=== PATIENT | female | born 1945 | race Caucasian/White ===

== ENCOUNTER 2017-01-26 10:24 | Inpatient (IN) | payer MEDICARE ==
[~2017-01-26] VITALS: Ht 160 cm; Wt 65.5 kg
[~2017-01-26 10:24] MED LIST: ASPI-973 PO; CHOL10008 PO; CYCL10TA9 PO; DXM4T PO; HYDR25TA4 PO; IBUP400T22 PO; LENA25CA PO; LORA0.5T PO; METO50TA3 PO; MV-M1TAB38 PO; NIFE60TA62 PO; OXYC-466 PO; OXYC40TA46 PO; RANI75TA21 PO; VENL75TA87 PO; ZOLP5TAB6 PO
--- NOTE | 2017-01-26 10:31 | ED.REPORT ---
HPI-Stroke / CVA Jan 26, 2017 ED Provider: Babar Bowser Patient is a 71 year old female who presents to the ED complaining of slurred speech noticed at 0900 this morning when on the phone with her daughter. She felt normal upon waking at 0500 this morning but had not spoken until her phone call with her daughter. Associated symptoms include confusion. She denies numbness, fever, vomiting, diarrhea, or any other symptoms. Patient reports that she has been feeling globally weak for the last few days. Nursing Notes Stated Complaint: STROKE SYMPTOMS Chief Complaint: Stroke Symptoms Nursing Notes Reviewed: Yes Allergies: Coded Allergies: allopurinol (Verified Allergy, Unknown, 06/12/16) Sulfa (Sulfonamide Antibiotics) (Verified Adverse Reaction, Intermediate, Nausea, 08/13/16) Scheduled Aspirin (Aspirin) 81 Mg Tablet 81 MG PO DAILY (Reported) Dexamethasone (Dexamethasone) 4 Mg Tablet 40 MG PO WEEKLY (Reported) Hydrochlorothiazide (Hydrochlorothiazide) 25 Mg Tablet 25 MG PO DAILY (Reported ) Lenalidomide (Revlimid) 25 Mg Capsule 25 MG PO daily [id number] (Reported) Metoprolol Tartrate (Metoprolol Tartrate) 50 Mg Tablet 50 MG PO BID (Reported) Nifedipine ER (Nifedipine ER) 60 Mg Tab.er.24 60 MG PO DAILY (Reported) Oxycodone ER (Oxycontin) 40 Mg Tab.er.12h 40 MG PO BID (Reported) Ranitidine (Zantac OTC) 75 Mg Tablet 75 MG PO prn (Reported) Venlafaxine ER (Venlafaxine ER) 75 Mg Tab.er.24 150 MG PO DAILY (Reported) Scheduled PRN Ibuprofen (Ibuprofen) 400 Mg Tablet 400 MG PO QID PRN PRN For Pain (Reported) Zolpidem (Zolpidem) 5 Mg Tablet 5 MG PO HS PRN PRN For Insomnia (Reported) oxyCODONE-Acetaminophen 10-325 mg (oxyCODONE-Acetaminophen 10-325 mg) 1 Each Tablet 1 TABLET PO Q6H PRN PRN For Pain (Reported) General Time Seen by Provider: 10:31 Chief Complaint Slurred speech Hx Obtained From: Patient, Daughter Arrived By: Walk-in Time last known well 0500 Sudden in Onset?: Yes Symptom Duration: Since onset Progression Since Onset: Unchanged (Per daughters ) Risk Factors Risk Notes: Last known well 0500, greater than 4 & 1/2 hours. )( TPA Administration/Criteria Stroke Thrombolytic Therapy : TPA Considered: Yes Neurologist Contacted: No TPA Administered Intravenously: No, exclusion criteria (additionally, she has minimal symptoms with a score of only one with totally understandable speech.) Inclusion Criteria: Dx acute ischemic CVA, Measurable neuro deficit, 18 years or older )( CVA Risk Stratification Age >60 Hypertension SmokingNo Diabetes mellitus, No Hyperlipidemia, No Prior CVA/TIA Risk factors reviewed Past Medical History Past Medical History Notes: given a prescription from Dr. Simpson last week, pharmacy will not fill without authorization from Dr. cortez Past Medical History Compression fractures in spine Reports: Cancer (multiple myeloma), Hypertension, Denies: Coronary artery disease, Diabetes mellitus, Stroke Past Surgical History Denies: Pacemaker insertion Smoking History Former Smoker Social History lives with daughter and son in law. Has been having prescriptions filled locally since 10/2015 Alcohol Use: Denies alcohol use Ambulatory Status Wheelchair Review of Systems Constitutional: Reports: Weakness - generalized, Denies: Fever GI: Denies: Diarrhea, Nausea, Vomiting Neurologic: Reports: Confusion, Slurred speech, Denies: Numbness Complete sys rev & neg: except as marked. Physical Exam Initial Vital Signs Vital Signs (First) Date Time Temp Pulse Resp B/P Pulse Ox O2 Delivery O2 Flow Rate FiO2 01/26/17 10:38 36.6 82 13 116/64 97 Room Air Initial VS: Reviewed Skin: Warm, Dry Psychiatric: Mood/affect normal, Behavior normal, Normal thought content General/Constitutional: Awake, Alert, Well appearing, Well developed Head / Eyes: Atraumatic, Normocephalic, PERRL, No nystagmus Neck: Supple Respiratory / Chest: No respiratory distress Cardiovascular: Heart rate NL, Regular rhythm Neurologic: Oriented X3, No sensory deficits Per daughters, speech is slurred from normal but is still intelligable. See stroke scale Lower Extremity / Pelvis / MS: Neurologic intact, Vascular intact Trace edema in lower extremities. Pulses intact Interpretation & Diagnostics Lab Results Interpretation Result Diagram: 01/26/17 1039 01/26/17 1039 Test 01/26/17 10:39 White Blood Count 9.2th/mm3 (3.8-10.1) Red Blood Count 4.04mil/mm3 (3.90-5.20) Hemoglobin 12.0g/dL (12.0-15.6) Hematocrit 34.9% (35.0-46.0) Mean Corpuscular Volume 86.4fL (81-100) Mean Corpuscular Hemoglobin 29.7pg (27.0-35.0) Mean Corpuscular Hemoglobin Concent 34.4% (32.0-37.0) Red Cell Distribution Width 15.5% (12.3-15.4) Platelet Count 168bil/L (150-400) Neutrophils (%) (Auto) 71.8% (40-74) Lymphocytes (%) (Auto) 5.5% (14-46) Monocytes (%) (Auto) 20.8% (4-12) Eosinophils (%) (Auto) 0.8% (0-5) Basophils (%) (Auto) 0.1% (0-3) Prothrombin Time 10.0sec (8.1-12.5) Prothromb Time International Ratio 0.94ratio Sodium Level 135mEq/L (134-144) Potassium Level 3.6mEq/L (3.5-5.2) Chloride Level 93mEq/L (97-108) Carbon Dioxide Level 26mmol/L (18-29) Blood Urea Nitrogen 22mg/dL (8-27) Creatinine 1.04mg/dL (0.57-1.00) Estimat Glomerular Filtration Rate 75mL/min (>59) Glucose Level 115mg/dL (60-99) Calcium Level 9.3mg/dL (8.5-10.1) Total Bilirubin 0.3mg/dL (0.0-1.2) Aspartate Amino Transf (AST/SGOT) 12U/L (0-50) Alanine Aminotransferase (ALT/SGPT) 10U/L (0-32) Alkaline Phosphatase 50U/L (25-165) Troponin T 0.010ug/L (0.0-0.011) Total Protein 6.4g/dL (6.4-8.4) Albumin 4.1g/dL (3.4-5.0) ECG Interpretation ECG Interpretation: sinus rate 79 probable left atrial enlargement LVH Time: 10:52 Interpreted by: ED physician CT Head Interpretation BRAIN CT: IMPRESSION: Mild microvascular atherosclerotic change in the deep white matter of each hemisphere, no acute disease. Dictated by: Jon Sommers M.D. on 01/26/2017 at 11:58 Approved by: Jon Sommers M.D. on 01/26/2017 at 11:59 Study: Head CT no contrast Interpretation / Wet Read by: Interpret - Radiologist Re-Eval/Medical Decision Re-Evaluation/Progress : Time of Eval: 12:11 )( Re-Eval Neurologic Exam: Alert Re-Evaluation/Progress Note: Rechecked patient. Discussed plan for admission. Patient understands and agrees with plan. All questions addressed at this time. NIH Stroke Scale : Level of Consciousness: Alert and responsive (0) Ask Month & Age: Both questions right (0) Open/Close Eyes/Hand Call Center Supervisor: Performs both tasks (0) Horizontal EO Movements: None (0) Visual Guidry: No visual loss (0) Facial Palsy: Normal symmetry (0) Right Arm Motor Drift (10s): No drift 10 sec (0) Left Arm Motor Drift (10s): No drift 10 sec (0) Right Leg Motor Drift (5s): No drift 5 sec (0) Left Leg Motor Drift (5s): No drift 5 sec (0) Limb Ataxia FNF/Heel-Aldrich: No ataxia (0) Sensation (Arms/Legs/Face): No sensory loss (0) Language Aphasia: No aphasia, normal (0) Dysarthria: Slurring intelligible (1) Extinction/Inattention: No exctinct/inattent (0) NIHSS Score: 1 Time NIHSS Performed: 10:33 Date NIHSS Performed: Jan 26, 2017 Consultation : Referral / Consult Name: Joe Elliott MD Consulted With: Hospitalist Call Returned at: 12:53 Flame Degreaser: Will see patient, Agrees with eval, Agrees with plan, Accepts admit Note: Discussed patient's case. Accepts admit. Counseled Regarding: Diagnosis, Lab results, Need for admission Patient Discharge & Departure Impression: Primary Impression: Cerebrovascular accident Disposition: ADMITTED TO HOSPITAL Referrals: JEROMY FLORES DO (PCP) Scribe Attestation Portions of this note were transcribed by Sanjay Gauthier. I, Dr. Bowser personally performed the history, physical exam and medical decision-making; I reviewed and confirmed the accuracy of the information in the transcribed note. Signed by: Sanjay Gauthier 01/26/17, 1254 copies to: JEROMY FLORES Kirk H MD Jan 26, 2017 10:31 SANJAY GAUTHIER Jan 26, 2017 10:49
[2017-01-26 10:38] VITALS: BP 116/64; PULSE 82; RESP 13; O2SAT 97
[2017-01-26 11:13] LABS: BASOPHILS % (AUTO) 0.1 % (0-3); EOSINOPHILS % (AUTO) 0.8 % (0-5); MONOCYTES % (AUTO) 20.8 % (4-12); Mean Corpuscular Hemoglobin 29.7 pg (27.0-35.0); Mean Corpuscular Volume 86.4 fL (81-100); NEUTROPHILS % (AUTO) 71.8 % (40-74); Platelet Count 168 bil/L (150-400)
[2017-01-26 11:15] LABS: INR 0.94 ratio
[2017-01-26 11:23] LABS: TROPONIN T 0.01 ug/L (0.0-0.011)
--- NOTE | 2017-01-26 11:59 | DRSVH ---
PROCEDURE: CT BRAIN WITHOUT CONTRAST ([id number]) INDICATIONS: Dysarthria TECHNIQUE: Noncontrast 4.5 mm thick angled axial sections acquired from the foramen magnum to the vertex, with c oronal reformats. COMPARISON: None. FINDINGS: Image quality: Excellent. CSF spaces: Basal cisterns are patent. No extra-axial fluid collections. Ventricles are normal in size and shape. Brain: No midline shift. No intracranial masses or hemorrhage. Meléndez-white matter interface is norm al. Skull and face: Calvarium and visualized facial bones are intact, without suspicious lesions. Sinuses: Visualized sinuses and mastoids are clear. IMPRESSION: Mild microvascular atherosclerotic change in the deep white matter of each hemisphere, no acute disease. Dictated by: Jon Sommers M.D. on 01/26/2017 at 11:58 Approved by: Jon Sommers M.D. on 01/26/2017 at 11:59
[2017-01-26 12:22] VITALS: BP 118/66; PULSE 76; RESP 21; O2SAT 95
--- NOTE | 2017-01-26 12:57 | NUR ---
Evaluation completed. Please go to "Notes" then click on "Assessments and Notes" (bottom left corner of screen). Then select appropriate discipline tab on top of screen.
[2017-01-26] MEDS ORDERED: Alum-Mag Hydrox-Simeth 30 mL Suspension PO PRN ×2 (13:00→13:40)
[2017-01-26] MEDS ORDERED: Ondansetron 2 mg/mL 2 mL Inj IVPUSH PRN (13:00)
[2017-01-26] MEDS ORDERED: Ondansetron 2 mg/mL 2 mL Inj IV PRN (13:40)
[2017-01-26] MEDS ORDERED: Polyethylene Glycol (PEG) 17 Gm Powder PO PRN (13:40)
[2017-01-26] MEDS ORDERED: oxyCODONE-Acetamin 10-325 mg Tablet PO PRN (13:40)
[2017-01-26] MEDS ORDERED: Labetalol 5 mg/mL 4 mL Inj IVPUSH PRN (13:40)
--- NOTE | 2017-01-26 14:02 | PCM.HPMED ---
Subjective Date of Service Jan 26, 2017 Primary Provider: Admitting Physician: Primary Care Physician: Melita Naylor DO Attending Physician: Admit Status: From the Emergency Department, Admit to [facility] Team Chief Complaint: Dysarthria, Confusion History of Present Illness: Patient is a 71 year old female with a past medical history of Multiple Myeloma , Chronic Pain Syndrome, Essential Hypertension, Coronary Artery Disease, GERD, and Depression. She presents to the ER at [facility] complaining of slurred speech. Pt states this was noticed early this morning while she was speaking on the telephone with her daughter. Pts daughter reports pts speech seemed garbled and pt seemed confused at times while talking on the telephone this morning at approximately 9AM. Pt states she awoke from sleep at approximately 5:30 AM today and did not notice anything different than normal. She denies any weakness in her upper and lower extremities. She denies any headache, changes in vision, dizziness, chest pain, shortness of breath, and palpitations. Pt denies any recent UTI symptoms. She states she has never had symptoms like this before. Pt denies any difficulty swallowing. At present, pts confusion seems to have resolved. Pt states she has been taking all of her daily medications as prescribed, including Aspirin 81 mg daily. Pt has no other complaints or concerns at this time. Review of Systems: All systems reviewed and are negative except for what has already been mentioned in the HPI. Allergies Coded Allergies: allopurinol (Verified Allergy, Unknown, 06/12/16) Sulfa (Sulfonamide Antibiotics) (Verified Adverse Reaction, Intermediate, Nausea, 08/13/16) Home Medications 1. Metoprolol 2. Nifedipine 3. HCTZ 4. Aspirin 5. Revlimid 6. Dexamethasone 7. Oxycodone 8. Ranitidine 9. Venlafaxine PMH 1. Coronary Artery Disease 2. Essential Hypertension 3. Multiple Myeloma 4. Chronic Pain Syndrome 5. Depression 6. GERD 7. Remote hx of Tobacco Use Disorder Family History Pt denies any family hx of stroke. Social History Hx Alcohol Use: No Hx Substance Use: No Hx Tobacco Use: Yes Smoking Status: Former Smoker Exam Vital Signs Vital Sign - Last Date Time Temp Pulse Resp B/P Pulse Ox O2 Delivery O2 Flow Rate FiO2 01/26/17 12:22 36.2 76 21 118/66 95 Room Air Exam GENERAL: NAD, Pt laying in bed comfortably HEENT: AT/NC, PERRLA, EOMI, Mucus Membranes are moist CARDIAC: RRR; No M/R/G PULM: CTAB; No wheezes or rhonchi bilaterally ABD: Soft, Nontender, Nondistended, Positive bowel sounds in all quadrants, No Hepatosplenomegaly appreciated EXT: No C/C/E; No calf tenderness bilaterally SKIN: Warm, Dry, [place], and Intact NEURO: Alert and oriented x3; Following all commands; 4/5 strength in bilateral upper and lower extremities; CN II-XII are grossly intact PSYCH: Normal mood and affect Lab and Diagnostics Result Diagram: 01/26/17 1039 01/26/17 1039 X-Rays, CTs and MRIs CT BRAIN WITHOUT CONTRAST INDICATIONS: Dysarthria TECHNIQUE: Noncontrast 4.5 mm thick angled axial sections acquired from the foramen magnum to the vertex, with coronal reformats. COMPARISON: None. FINDINGS: Image quality: Excellent. CSF spaces: Basal cisterns are patent. No extra-axial fluid collections. Ventricles are normal in size and shape. Brain: No midline shift. No intracranial masses or hemorrhage. Meléndez-white matter interface is normal. Skull and face: Calvarium and visualized facial bones are intact, without suspicious lesions. Sinuses: Visualized sinuses and mastoids are clear. IMPRESSION: Mild microvascular atherosclerotic change in the deep white matter of each hemisphere, no acute disease. Assessment & Plan Patient is a 71 year old female with a past medical history of CAD, Essential Hypertension, Multiple Myeloma, Chronic Pain Syndrome, Depression, GERD, and remote hx of Tobacco Use Disorder who is admitted to hospital for an Acute CVA. 1. Acute CVA - Present on admission - Admit to medical floor with telemetry monitoring - Start Plavix 75 mg PO daily - Continue Aspirin 81 mg daily - NPO for now - Start NS at 100 mL/hour - Speech Therapy evaluation to evaluate ability to swallow - Hold home antihypertensives for 24 hours - Check fasting lipid panel in AM - Start Atorvastatin 40 mg PO q HS tonight - PT/OT evaluations to be completed in hospital - Will order an Echocardiogram (I am aware one was done in December 2016) - Will order an MRI of the brain without contrast now - Will order a CT angiogram of the head and neck now 2. Essential Hypertension - Well controlled - Hold home Metoprolol, HCTZ, and Nifedipine for now for permissive hypertension given #1 - IV Labetalol PRN for SBP greater than 200 mmHg - Monitor closely 3. Coronary Artery Disease - Continue home Aspirin 81 mg daily 4. Multiple Myeloma - Continue home Revlimid - Continue home Dexamethasone - Pt follows up outpatient with Oncology 5. Depression - Continue home Effexor 6. Chronic Pain Syndrome - Related to her Multiple Myeloma - Continue pts home Oxycodone dosage 7. GERD - Continue home Ranitidine 8. Disposition - Anticipate discharge to home within the next 1-2 days - Pt admitted to hospital under inpatient status as her anticipated LOS is at least 2 midnights DNR/DNI, per discussion with patient at bedside. Joe Elliott MD Jan 26, 2017 14:02
[2017-01-26] MEDS ORDERED: CHLO473M13 MM (14:06)
[2017-01-26 14:24] LABS: APPEARANCE,URINE HAZY (CLEAR,HAZY); COLOR,URINE YELLOW (YELLOW); PH,URINE 5.5 (5.0-8.0)
[2017-01-26 14:25] LABS: OCCULT BLOOD,URINE NEGATIVE (NEGATIVE); UROBILINOGEN,URINE NORMAL (NORMAL)
[2017-01-26 14:30] LABS: INR 0.94 ratio
--- NOTE | 2017-01-26 14:40 | NUR ---
Admission pt arrived on [facility], A/Ox3, no complains of PENA, blurred vision, or unilateral weakness. Pt able to transfer self from gurney to bed with assistance r/t dizziness with standing. Amy (daughter) is at bedside, will be ride home at discharge. Oriented to call light, visiting hours.
[2017-01-26 14:52] LABS: Magnesium 1.6 mg/dL (1.6-2.6)
[2017-01-26 14:53] LABS: TROPONIN T < 0.010 ug/L (0.0-0.011)
[2017-01-26 14:54] VITALS: BP 117/70; PULSE 80; RESP 18; O2SAT 99
[2017-01-26 15:56] VITALS: PULSE 72
[2017-01-26] MEDS: 0.9% Sodium Chloride 1,000 ML IV SCH (16:09)
--- NOTE | 2017-01-26 16:31 | DRSVH ---
PROCEDURE: MRI BRAIN WITHOUT CONTRAST ([id number]) INDICATIONS: dysarthria TECHNIQUE: Noncontrast axial T1 spin echo, axial T2 fast spin echo, sagittal and axial FLAIR, coronal T2 fast sp in echo, axial gradient echo, axial diffusion and ADC through the brain. COMPARISON: None. FINDINGS: Image quality: Diagnostic. CSF Spaces: Basal cisterns are patent. No extra-axial fluid collections. Ventricles are prominent in size. Brain: No intracranial masses or hemorrhage. Meléndez/white matter interface is normal. Extensive confl uent areas and additional scattered areas of increased flair signal are identified within the suprate ntorial brain, predominantly seen within the bilateral frontal and temporal lobes. However, there ar e vague areas of increased flair signal also evident within the cerebellum, katrin, midbrain and left t halamus. On the diffusion images there is a vague slightly increased diffusion signal noted involvin g these areas. However, the degree of increased diffusion signal is not quite as bright as normally seen in the setting of acute infarction. Additionally, on the ADC map, there is no corresponding dec reased signal to definitely confirm that the abnormal diffusion signal within these areas represents true ischemia and most likely represents T2 shine through. An additional 2 foci of increased diffusi on signal are evident involving the posterior bilateral frontal lobes along the precentral gyrus. Gi faby their small size, the ADC map does not definitely confirm whether these are real areas of diffusi on restriction. Normal intravascular flow voids are present. Skull and face: Calvarium has normal marrow signal. Orbits appear normal. Sinuses: Sinuses and mastoids are clear. IMPRESSION: 1. There are at least 2 small foci of acute ischemia involving the bilateral posterior frontal lobes along the precentral gyrus. 2. Vague areas of abnormal signal involving the cerebellum, katrin, midbrain and potentially the left thalamus may represent subacute areas of infarction. However, other etiologies, including a delamina ting process, an infiltrative process (such as a mass) or potentially infection cannot be excluded. Contrast enhanced MRI of the brain is recommended for further evaluation. 3. Extensive chronic small vessel ischemic changes. 4. Moderate parenchymal volume loss. 5. No acute intracranial hemorrhage. Dictated by: Sincere Dickinson M.D. on 01/26/2017 at 15:14 Approved by: Sincere Dickinson M.D. on 01/26/2017 at 15:29
[2017-01-26 17:16] VITALS: BP 114/70; PULSE 73; RESP 18; O2SAT 99
--- NOTE | 2017-01-26 18:38 | NUR ---
[facility] signed
[2017-01-26] MEDS: oxyCODONE ER 40 mg ER12 Tablet PO SCH (19:49)
[2017-01-26 22:03] VITALS: BP 120/73; PULSE 69; RESP 18; O2SAT 94
[2017-01-27] VITALS (8 sets, daily range): BP systolic 107–137; BP diastolic 68–77; PULSE 65–92; RESP 18; O2SAT 95–98
[2017-01-27] MEDS: 0.9% Sodium Chloride 1,000 ML IV SCH ×3 (01:47→16:01)
[2017-01-27 06:35] LABS: BASOPHILS % (AUTO) 0.4 % (0-3); EOSINOPHILS % (AUTO) 8.7 % (0-5); MONOCYTES % (AUTO) 17.2 % (4-12); Mean Corpuscular Hemoglobin 29.2 pg (27.0-35.0); NEUTROPHILS % (AUTO) 56.2 % (40-74); Platelet Count 115 bil/L (150-400)
[2017-01-27] MEDS ORDERED: LENALIDOMIDE 25 MG PO SCH (08:30)
[2017-01-27] MEDS: oxyCODONE ER 40 mg ER12 Tablet PO SCH ×2 (08:38→21:11)
--- NOTE | 2017-01-27 10:32 | DRSVH ---
PROCEDURE: CT ANGIO HEAD AND NECK (P) INDICATIONS: Stroke/TIA TECHNIQUE: Pre-contrast 4.5 mm thick sections acquired from the foramen magnum to the vertex. After the adminis tration of intravenous contrast, 1 mm thick sections acquired from the aortic arch through the Kiana of [place]. Post-contrast 4.5 mm thick sections then re-acquired from the foramen magnum to the vert ex. 3-dimensional fvigxak-gukgnpfkm-fpdpdplyuu (MIP) and/or volume rendering reformats were acquired of the central intracranial vasculature and neck separately. For radiation dose reduction, the foll owing was used: automated exposure control, adjustment of mA and/or kV according to patient size. COMPARISON: [facility], CT, CT BRAIN WO CON, 01/26/2017, 11:19. FINDINGS: Image quality: Excellent. BRAIN: CSF spaces: Ventricles are normal in size and shape. Basal cisterns are patent. No extra-axial flu id collections. Brain: No midline shift. No intracranial bleeds or masses. Meléndez-white matter interface appears int act. There is slight prominence of the white matter in the cerebellum series 5 image 7 on the left. O n the right is a 10 mm area of decreased attenuation and on the left an area of 2 cm in size. These m ay be areas of infarct. Elsewhere atrophy and small vessel ischemic change of aging are noted. Skull and face: Calvarium and facial bones appear intact, without suspicious lesions. Orbits appear normal. Sinuses: Sinuses and mastoids are clear except for some focal mucosal thickening of the sphenoid sin us and series [address] ANGIOGRAPHY: Anterior circulation: Intracranial internal carotid arteries are normal in size and flow. The flow within the paired anterior cerebral arteries is normal and symmetric. The flow within the middle cer ebral arteries is normal and symmetric. The anterior communicating artery is seen. There is a 3-4 mm area thought to represent aneurysmal dilatation of the right and of the anterior communicating arter y. This is seen on series 9 image 65, series 8 image 74, and series 10 image 81. Posterior circulation: Visualized portions of the vertebral arteries demonstrate normal caliber, and join to form a normal appearing basilar artery. Flow within the posterior cerebral arteries is norm al and symmetric. No aneurysms are seen. NECK CT ANGIOGRAPHY: Carotid system: The great vessels demonstrate a conventional anatomy as they arise from the aortic a rch. The origins of the common carotid arteries appear patent. The first several centimeters on the left is difficult to see but is thought to be widely patent with artifact caused by contrast within the subclavian and innominate veins adjacent to the vessel. The common carotid arteries demonstrate n ormal caliber and courses. Scattered foci of atherosclerotic plaquing are present. The bifurcation re gions are both widely patent. The internal carotid arteries demonstrate normal calibers and courses. Posterior circulation: The origins of the vertebral arteries both appear widely patent. The more duke perior extracranial portions of both vertebral arteries also demonstrate normal courses and calibers. They join to form a normal appearing basilar artery. Soft tissues: Visualized neck soft tissues demonstrate no suspicious abnormalities. Bones: No suspicious bony lesions. Visualized cervical spine appears normally aligned. IMPRESSION: 1. Question of areas of decreased attenuation in the white matter the cerebellum suggesting possible infarcts. No area of bleeding is seen. Other areas question of MRI consistent with small vessel ische jess change. 2. Scattered atherosclerotic plaquing is present but no stenosis or dissection. 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 Dictated by: Bobby Gunter M.D. on 01/27/2017 at 10:02 Approved by: Bobby Gunter M.D. on 01/27/2017 at 10:30
--- NOTE | 2017-01-27 10:54 | DRSVH ---
PROCEDURE: MRI BRAIN WITH CONTRAST INDICATIONS: Possible brain mass; Acute CVA COMPARISON: Brain MRI dated 01/26/17 without contrast. TECHNIQUE: Postcontrast MR imaging of the brain was performed in the axial and coronal configuration . FINDINGS: The vaguely globular areas of abnormal signal identified within the cerebellum, katrin, midb rain, and thalamus do not demonstrate significant enhancement. These areas demonstrate decreased sig nal intensity on the postcontrast images demonstrating lack of normal enhancement and suggests abnorm al tissue without significant internal vascularity, such as is seen in the setting of an infarction. There is no mass or significant peripheral enhancement. Very subtle vague enhancement involving the vague area of abnormal signal involving the left cerebellum is present along the periphery, suggestin g hyperemia related to recent infarction. No enhancing masses or lesions are present within the brai n. The imaged vascular structures appear to be patent, including the distal vertebral arteries. IMPRESSION: 1. No enhancing parenchymal lesions of the brain. 2. The vague areas of abnormal signal involving the cerebellum, katrin, midbrain, and left thalamus ar e most suggestive infarctions, which may be subacute. Other differential diagnostic considerations w hich are felt to be significantly less likely would include infection, histiocytosis or paraneoplasti c cerebellar degeneration. A followup contrast enhanced MRI of the brain in 2-3 months would be help ful to reevaluate the brain. Dictated by: Sincere Dickinson M.D. on 01/27/2017 at 9:35 Approved by: Sincere Dickinson M.D. on 01/27/2017 at 9:53
--- NOTE | 2017-01-27 11:07 | PCM.PNMED ---
Subjective Date of Service Jan 27, 2017 Subjective Pt continues to have slurred speech this morning and mild difficulty swallowing. Pt denies any headache, change in vision, dizziness, chest pain, palpitations overnight. She denies any weakness in her upper and lower extremities. Exam Vital Signs Vital Sign - Last Date Time Temp Pulse Resp B/P Pulse Ox O2 Delivery O2 Flow Rate FiO2 01/27/17 10:05 37.1 81 18 120/77 97 Room Air Intake and Output 01/26/17 01/26/17 01/27/17 Cumulative From/Thru 15:00 23:00 07:00 01/26/17 10:38 - 01/27/17 06:54 Intake Total 385 ml 100 ml 485 ml Output Total 0 ml 650 ml 650 ml Balance 385 ml -550 ml -165 ml Intake Oral 200 ml 100 ml 300 ml IV Total 185 ml 185 ml Output Urine Total 0 ml 650 ml 650 ml # Voids 1 1 # Bowel Movements 0 0 Exam GENERAL: NAD, Pt laying in bed comfortably HEENT: AT/NC; PERRLA, EOMI, MM moist CARDIAC: RRR, No M/R/G PULM: CTAB ABD: Soft, NT, ND, Positive BS; No hepatosplenomegaly appreciated EXT: No C/C/E; No calve tenderness bilaterally SKIN: Warm, dry, pink, and intact NEURO: Alert and oriented x3; Following all commands; 5/5 strength in bilateral upper and lower extremities, Pt continues to have very mildly slurred speech PSYCH: Normal mood and affect IVs and Medications Medications Reviewed: Medications were reviewed in detail Lab and Diagnostics Result Diagram: 01/27/1760301/27/17 0604 X-Rays, CTs and MRIs MRI BRAIN WITHOUT CONTRAST INDICATIONS: dysarthria TECHNIQUE: Noncontrast axial T1 spin echo, axial T2 fast spin echo, sagittal and axial FLAIR, coronal T2 fast spin echo, axial gradient echo, axial diffusion and ADC through the brain. COMPARISON: None. FINDINGS: Image quality: Diagnostic. CSF Spaces: Basal cisterns are patent. No extra-axial fluid collections. Ventricles are prominent in size. Brain: No intracranial masses or hemorrhage. Meléndez/white matter interface is normal. Extensive confluent areas and additional scattered areas of increased flair signal are identified within the supratentorial brain, predominantly seen within the bilateral frontal and temporal lobes. However, there are vague areas of increased flair signal also evident within the cerebellum, katrin, midbrain and left thalamus. On the diffusion images there is a vague slightly increased diffusion signal noted involving these areas. However, the degree of increased diffusion signal is not quite as bright as normally seen in the setting of acute infarction. Additionally, on the ADC map, there is no corresponding decreased signal to definitely confirm that the abnormal diffusion signal within these areas represents true ischemia and most likely represents T2 shine through. An additional 2 foci of increased diffusion signal are evident involving the posterior bilateral frontal lobes along the precentral gyrus. Given their small size, the ADC map does not definitely confirm whether these are real areas of diffusion restriction. Normal intravascular flow voids are present. Skull and face: Calvarium has normal marrow signal. Orbits appear normal. Sinuses: Sinuses and mastoids are clear. IMPRESSION: 1. There are at least 2 small foci of acute ischemia involving the bilateral posterior frontal lobes along the precentral gyrus. 2. Vague areas of abnormal signal involving the cerebellum, katrin, midbrain and potentially the left thalamus may represent subacute areas of infarction. However, other etiologies, including a delaminating process, an infiltrative process (such as a mass) or potentially infection cannot be excluded. Contrast enhanced MRI of the brain is recommended for further evaluation. 3. Extensive chronic small vessel ischemic changes. 4. Moderate parenchymal volume loss. 5. No acute intracranial hemorrhage. Assessment & Plan Patient is a 71 year old female with a past medical history of CAD, Essential Hypertension, Multiple Myeloma, Chronic Pain Syndrome, Depression, GERD, and remote hx of Tobacco Use Disorder who is admitted to hospital for an Acute CVA. 1. Acute CVA - Present on admission - MRI of the brain confirms presence of an acute stroke - Continue Plavix - Continue Aspirin - Continue Atorvastatin - Restart home antihypertensive medications now - CT angiogram of the head and neck does not reveal any hemodynamically significant stenosis - Continue mechanical soft diet with nectar thick liquids per Speech Therapy recommendations - ECHO with bubble study pending - Awaiting PT assessment 2. Acute UTI - Present on admission - Urine culture positive for Enterococcus - Start Rocephin 2 grams IV daily now 3. Essential Hypertension - Well controlled - Resume home Metoprolol, HCTZ, and Nifedipine now - Monitor closely 4. Coronary Artery Disease - Continue home Aspirin 81 mg daily 5. Multiple Myeloma - Continue home Revlimid - Continue home Dexamethasone - Pt follows up outpatient with Oncology 6. Depression - Continue home Effexor 7. Chronic Pain Syndrome - Related to her Multiple Myeloma - Continue pts home Oxycodone dosage 8. GERD - Continue home Ranitidine 9. Disposition - Anticipate discharge to home soon Joe Elliott MD Jan 27, 2017 11:07
--- NOTE | 2017-01-27 12:10 | NUR ---
Evaluation completed. Please go to "Notes" then click on "Assessments and Notes" (bottom left corner of screen). Then select appropriate discipline tab on top of screen.
[2017-01-27] MEDS: NIFEdipine 30 mg ER24 Tablet PO SCH (12:21)
[2017-01-27] MEDS: cefTRIAXone Inj 2,000 MG in Dextrose 5% Minibag Plus 50 ML IV SCH (12:44)
--- NOTE | 2017-01-27 16:08 | DRSVH ---
[facility] [address] [place] [address] Echocardiogram Report Name: SHAYNE AKERS LStudy Date: Height: 63 in Hospital Exam Location: [facility] Weight: 144 lb Gender: Female BSA: 1.7 m2 : 1945 Age: 71 yrs BP: 137/72 mmHg Reason For Study: CVA Ordering Physician: HOSPITALIST SVHPerformed By: Mo Pichardo Referring Physician: Greg FLORES Interpretation Summary The left ventricle is normal in size, wall thickness, and systolic function without any focal wall motion abnormalities with the ejection fraction visually estimated to be 60-65%. Assessment of diastolic parameters indicates a relaxation abnormality of the left ventricle, consistent with normal filling pressures. There has been no significant change since the previous study. The right ventricle is borderline dilated and right ventricular systolic function is at the lower limits of normal, and appears slightly larger compared to the previous study. The right ventricular systolic pressure is estimated at 31 mmHg assuming a right atrial pressure of 3 mm Hg, and is likely similar to the previous study. Both atria are normal in size and are unchanged compared to the previous study. The interatrial septum is intact with no Doppler evidence for an atrial septal defect and injection of contrast documented no interatrial shunt. The mitral valve leaflets are slightly calcified with mild mitral regurgitation that is unchanged compared to the previous study. There is no other significant valvular heart disease. Procedure: A two-dimensional transthoracic echocardiogram with color flow and Doppler was performed in limited views only. The study quality was technically adequate. Comparison is made with the echocardiogram of 12/21/16. A saline contrast injection was performed to assess for cardiac shunting. The patient was in normal sinus rhythm during the exam. The patient had occasional PACs during the exam. Left Ventricle: The left ventricle is normal in size, wall thickness, and systolic function without any focal wall motion abnormalities. The ejection fraction is estimated to be 60-65%. Assessment of diastolic parameters indicates a relaxation abnormality of the left ventricle, consistent with normal filling pressures. There has been no significant change since the previous study. Right Ventricle: The right ventricle is borderline dilated. Right ventricular systolic function is at the lower limits of normal. This is slightly larger compared to the previous study. Atria: Both atria are normal in size. This is unchanged compared to the previous study. The interatrial septum is intact with no evidence for an atrial septal defect. There is no Doppler evidence for an atrial septal defect. Injection of contrast documented no interatrial shunt. Mitral Valve: There is mild mitral annular calcification. The mitral valve leaflets appear mildly thickened, but open well. The mitral valve leaflets are slightly calcified. There is mild mitral regurgitation. This is unchanged compared to the previous study. Aortic Valve: The aortic valve is trileaflet. The aortic valve is slightly calcified. The aortic valve opens well. There is trace aortic regurgitation. Tricuspid Valve: The tricuspid valve is normal in structure and function. There is trace tricuspid regurgitation. The right ventricular systolic pressure is estimated at 31 mmHg assuming a right atrial pressure of 3 mm Hg. This is unchanged compared to the previous study. Pulmonic Valve: There is no other significant valvular heart disease. Great Vessels: The ascending aorta is normal in size. The IVC is of normal diameter and collapses greater than 50% with a sniff. This suggests a low right atrial pressure of 3 mm Hg. Pericardium/ Pleura There is no pericardial effusion. There is no pleural effusion. MMode/2D Measurements & Calculations LVIDd: 4.1 cm RA long axis asc Aorta LVIDs: 2.9 cm LA A2 area: 18.5 cm Diam: 3.1 cm FS: 28.9 % LA A4 area: 18.5 cm RA area IVSd: 1.0 cm LA length (vol): 5.4 cm LVPWd: 1.0 cm LA vol: 54.2 ml : 12.0 cm LA vol index RA vol: 28.7 ml RA : 17.1 mm2 IVC diam: 2.1 cm LV costa. diameter/BSA LV sys. diameter/BSA (cm/m^2): 2.4 (cm/m^2): 1.7 Doppler Measurements & Calculations Ao V2 max MV E max zac MV E/A: 0.71 TR max zac : 149.6 cm/sec : 64.8 cm/sec Med Peak E' Zac : 266.6 cm/sec Ao max PG MV A max zac TR max PG : 9.0 mmHg : 91.9 cm/sec E/E' med: 16.1 : 28.4 mmHg Ao mean PG MV A dur: 0.13 sec : 4.3 mmHg MV dec time Ao V2 mean : 0.27 sec : 97.0 cm/sec Ao V2 VTI: 24.2 cm Reading Physician:04:07 PM
--- NOTE | 2017-01-27 16:28 | NUR ---
Social Work-initial assessment/ readiness for discharge: Data:See initial assessment. Pt is a 71 y/o female who was admitted on 01/26/17 for CVAer H&P. Pt's insurance is [employer] and [employer] and PCP is Melita Naylor DO. EMR reviewed. Pt's readmission score is 4-high. SW met with pt at bedside to discuss discharge planning, SW role explained. Pt is alert and oriented x3. Pt resides at home on her daughter's property in mother in law apartment where she remains independent with ADLS. Pt uses walking sticks at home and does drive. Pt has no history with HH and SNF. Pt has no terminologist care or VA benefits. SW discussed DPOA/ advance directive, pt has completed this, SW encouraged a copy to be brought in. PT/ST worked with pt and recommended home no needs. SW discussed HH and pt declining. Pt states her family will provide transport home. SW provided phone number and plan on white board in room. SW will continue to follow. Assessment:Pt who would benefit from HH. Plan:Pt to discharge home with family when medically stable via POV. No anticipated discharge needs.SW will continue to follow. ENOCH Larkin Addendum: 01/27/17 at 1630 by LILLY NICHOLS Amended: Links added.
--- NOTE | 2017-01-27 17:51 | NUR ---
Activity Assumed care of patient at 1500. She has been amb to BR with SBA, no weakness or deficiencies noted thus far. Neuro checks have been well with exception of slight delay/mumble with speaking at times. No c/o pain/discomfort. Bed in lowest, locked position and call light in reach.
[2017-01-28 01:10] VITALS: BP 128/81; PULSE 68; RESP 18; O2SAT 98
[2017-01-28] MEDS: 0.9% Sodium Chloride 1,000 ML IV SCH (01:37)
--- NOTE | 2017-01-28 04:45 | NUR ---
Uneventful Night Pt neuro stable: A & OX3, no focal neuro deficit noted: speech appears fine,no difficulty noted,understanding spoken language, tongue at midline, no facial droop noted. full strength on upper and lower extremities, sensation intact. Pt denies any pain/SOB/N/V/fever/chills, VSS, recent BP128/81. Insomnia, night resident Jennifer paged at late evening, Melatonin ordered and administered, then pt doze off afterwards.
[2017-01-28 05:11] VITALS: BP 125/84; PULSE 82; RESP 18; O2SAT 98
[2017-01-28] MEDS: NIFEdipine 30 mg ER24 Tablet PO SCH (08:57)
[2017-01-28] MEDS: oxyCODONE ER 40 mg ER12 Tablet PO SCH (08:58)
[2017-01-28] MEDS: cefTRIAXone Inj 2,000 MG in Dextrose 5% Minibag Plus 50 ML IV SCH (09:02)
[2017-01-28 09:37] LABS: BASOPHILS % (AUTO) 0.4 % (0-3); EOSINOPHILS % (AUTO) 3.9 % (0-5); Mean Corpuscular Hemoglobin 29.4 pg (27.0-35.0); NEUTROPHILS % (AUTO) 62.2 % (40-74); Platelet Count 140 bil/L (150-400)
[2017-01-28 10:24] VITALS: BP 118/78; PULSE 57; RESP 18; O2SAT 98
[2017-01-28 10:56] VITALS: PULSE 80
--- NOTE | 2017-01-28 13:45 | PCM.DIMED ---
Dena Boston DO 01/28/17 1344: Discharge Instructions Date of Service Jan 28, 2017 Dates of Hospitalization Jan 26, 2017 at 13:48 Discharge Diagnosis Discharge Diagnosis 1. Acute CVA, resolving 2. Acute UTI, resolving 3. Essential Hypertension, present on admission, controlled 4. Coronary Artery Disease, present on admission, stable 5. Multiple Myeloma, present on admission, stable 6. Depression, present on admission, stable 7. Chronic Pain Syndrome, present on admission, stable 8. GERD, present on admission, stable Medication Instructions You received 2 days of antibiotics for your urinary tract infection. I am sending you home with an oral antibiotics that you can take tomorrow to finish the 3-day treatment. I gave you 14 pills of Plavix which should be enough to get you to see your primary care physician. If you are going to run out, then call your primary care physician to fill the prescription for you. Otherwise, continue on all your home medications. Diet Heart Healthy Activity Other (as tolerated) Call your provider Fever or Chills, Shortness of breath, Chest pain, Excessive diarrhea, Weakness ( unilateral) Patient Instructions Follow up with your primary care provider within [address] Naylor has access to all the hospital records. I will put in my note that you need a repeat MRI per the MRI report, in 2-3 months. Be sure to ask your doctor. Follow-up Provider: JEROMY NAYLOR DO Follow-up with PCP in: 1 week Annette Prado DO 01/29/17 1513: Discharge Instructions Attending's Statement The patient was seen and examined together with Dr. Boston on 01/28/17nd I agree with the history, exam and plan as outlined in the note above. Dena Boston DO Jan 28, 2017 13:44 Annette Prado DO Jan 29, 2017 15:13
[2017-01-28] MEDS ORDERED: CIPR-231 PO (13:47)
[2017-01-28] MEDS ORDERED: CLOP75TA28 PO (13:51)
[2017-01-28 13:58] VITALS: BP 129/73; PULSE 63; RESP 18; O2SAT 96
--- NOTE | 2017-01-28 14:12 | NUR ---
Pt. screened. No OT needs. DC order.
--- NOTE | 2017-01-28 14:55 | NUR ---
Discharge Pt discharged at this time. All belongings gathered and returned to pt. Home meds retrieved from pharmacy and returned to pt in sealed envelope. Hard copy of new scripts given to pt to fill. IV D/Cd intact, tele monitor removed. VSS, no complains of increased pain or weakness. Discharge packet printed and reviewed with pt and family. Pt taken off [facility] in wheelchair by S[employer]IOR [employer]ATE[employer] MANAGER to front entrance, to be transported home in private vehicle driven by daughter.
--- NOTE | 2017-01-28 18:43 | PCM.DC.MED ---
Discharge Summary Date of Service Jan 28, 2017 Dates of Hospitalization Date of Hospital Admission Jan 26, 2017 at 13:48 Date of Discharge: Jan 28, 2017 Providers: Admitting Physician: Joe Elliott MD Primary Care Physician: Jeromy Flores DO Attending Physician: Joe Elliott MD Diagnosis at Time of Discharge Diagnosis at Time of Discharge 1. Acute CVA, resolving 2. Acute UTI, resolving 3. Essential Hypertension, present on admission, controlled 4. Coronary Artery Disease, present on admission, stable 5. Multiple Myeloma, present on admission, stable 6. Depression, present on admission, stable 7. Chronic Pain Syndrome, present on admission, stable 8. GERD, present on admission, stable Consultations Cardiology Procedures XRay, CTs & MRIs MRI BRAIN WITHOUT CONTRAST INDICATIONS: dysarthria TECHNIQUE: Noncontrast axial T1 spin echo, axial T2 fast spin echo, sagittal and axial FLAIR, coronal T2 fast spin echo, axial gradient echo, axial diffusion and ADC through the brain. COMPARISON: None. FINDINGS: Image quality: Diagnostic. CSF Spaces: Basal cisterns are patent. No extra-axial fluid collections. Ventricles are prominent in size. Brain: No intracranial masses or hemorrhage. Meléndez/white matter interface is normal. Extensive confluent areas and additional scattered areas of increased flair signal are identified within the supratentorial brain, predominantly seen within the bilateral frontal and temporal lobes. However, there are vague areas of increased flair signal also evident within the cerebellum, katrin, midbrain and left thalamus. On the diffusion images there is a vague slightly increased diffusion signal noted involving these areas. However, the degree of increased diffusion signal is not quite as bright as normally seen in the setting of acute infarction. Additionally, on the ADC map, there is no corresponding decreased signal to definitely confirm that the abnormal diffusion signal within these areas represents true ischemia and most likely represents T2 shine through. An additional 2 foci of increased diffusion signal are evident involving the posterior bilateral frontal lobes along the precentral gyrus. Given their small size, the ADC map does not definitely confirm whether these are real areas of diffusion restriction. Normal intravascular flow voids are present. Skull and face: Calvarium has normal marrow signal. Orbits appear normal. Sinuses: Sinuses and mastoids are clear. IMPRESSION: 1. There are at least 2 small foci of acute ischemia involving the bilateral posterior frontal lobes along the precentral gyrus. 2. Vague areas of abnormal signal involving the cerebellum, katrin, midbrain and potentially the left thalamus may represent subacute areas of infarction. However, other etiologies, including a delaminating process, an infiltrative process (such as a mass) or potentially infection cannot be excluded. Contrast enhanced MRI of the brain is recommended for further evaluation. 3. Extensive chronic small vessel ischemic changes. 4. Moderate parenchymal volume loss. 5. No acute intracranial hemorrhage. Cardiac Echo Impression 01/27/17 Echocardiogram Report Interpretation Summary The left ventricle is normal in size, wall thickness, and systolic function without any focal wall motion abnormalities with the ejection fraction visually estimated to be 60-65%. Assessment of diastolic parameters indicates a relaxation abnormality of the left ventricle, consistent with normal filling pressures. There has been no significant change since the previous study. The right ventricle is borderline dilated and right ventricular systolic function is at the lower limits of normal, and appears slightly larger compared to the previous study. The right ventricular systolic pressure is estimated at 31 mmHg assuming a right atrial pressure of 3 mm Hg, and is likely similar to the previous study. Both atria are normal in size and are unchanged compared to the previous study. The interatrial septum is intact with no Doppler evidence for an atrial septal defect and injection of contrast documented no interatrial shunt. The mitral valve leaflets are slightly calcified with mild mitral regurgitation that is unchanged compared to the previous study. There is no other significant valvular heart disease. Reading Physician:04:07 PM Brief History From history and physical by Dr. Elliott dated 01/26/17: Patient is a 71 year old female with a past medical history of Multiple Myeloma , Chronic Pain Syndrome, Essential Hypertension, Coronary Artery Disease, GERD, and Depression. She presents to the ER at [facility] complaining of slurred speech. Pt states this was noticed early this morning while she was speaking on the telephone with her daughter. Pts daughter reports pts speech seemed garbled and pt seemed confused at times while talking on the telephone this morning at approximately 9AM. Pt states she awoke from sleep at approximately 5:30 AM today and did not notice anything different than normal. She denies any weakness in her upper and lower extremities. She denies any headache, changes in vision, dizziness, chest pain, shortness of breath, and palpitations. Pt denies any recent UTI symptoms. She states she has never had symptoms like this before. Pt denies any difficulty swallowing. At present, pts confusion seems to have resolved. Pt states she has been taking all of her daily medications as prescribed, including Aspirin 81 mg daily. Pt has no other complaints or concerns at this time. Hospital Course Patient is a 71 year old female with a past medical history of CAD, Essential Hypertension, Multiple Myeloma, Chronic Pain Syndrome, Depression, GERD, and remote hx of Tobacco Use Disorder who is admitted to hospital for an Acute CVA. 1. Acute non hemorrhagic CVA, in the bilateral posterior frontal lobes along the precentral gyrus, present on admission, resolving - MRI of the brain confirms presence of an acute stroke - Continued Plavix - Continued Aspirin - Continued Atorvastatin - Restarted home antihypertensive medications after a period of permissive hypertension - CT angiogram of the head and neck does not reveal any hemodynamically significant stenosis - Continued mechanical soft diet with nectar thick liquids per Speech Therapy recommendations - ECHO with bubble study showed no changes (see report) - PT assessment - okay for discharge to home - Swallow evaluation complete 2. Acute UTI, E. faecalis, present on admission, resolving - Urine culture positive for pak-sensitive Enterococcus faecalis - Rocephin 2 grams by IV for 2 days. Discharged with one more day of ciprofloxacin. 3. Essential Hypertension, present on admission, chronic & controlled - Resumed home Metoprolol, HCTZ, and Nifedipine - Monitor closely 4. Coronary Artery Disease, present on admission, chronic - Continued home Aspirin 81 mg daily 5. Multiple Myeloma, present on admission, chronic - Continued home Revlimid - Continued home Dexamethasone - Pt follows up outpatient with Oncology 6. Depression, present on admission, chronic - Continued home Effexor 7. Chronic Pain Syndrome, present on admission - Related to her Multiple Myeloma - Continued pts home Oxycodone dosage 8. GERD, present on admission, chronic - Continued home Ranitidine Exam Vital Signs (Last) Date Time Temp Pulse Resp B/P Pulse Ox O2 Delivery O2 Flow Rate FiO2 01/28/17 13:58 37.3 63 18 129/73 96 Room Air Test 01/26/17 10:39 01/26/17 14:05 01/26/17 14:07 01/27/17 06:04 Total Bilirubin 0.3mg/dL (0.0-1.2) Aspartate Amino Transf (AST/SGOT) 12U/L (0-50) Alanine Aminotransferase (ALT/SGPT) 10U/L (0-32) Alkaline Phosphatase 50U/L (25-165) Total Protein 6.4g/dL (6.4-8.4) Albumin 4.1g/dL (3.4-5.0) Prothrombin Time 10.0sec (8.1-12.5) Prothromb Time International Ratio 0.94ratio Hemoglobin A1c 5.7% (4.8-5.6) Magnesium Level 1.6mg/dL (1.6-2.6) Urine Color Yellow (YELLOW) Urine Appearance Hazy (CLEAR,HAZY) Urine pH 5.5 (5.0-8.0) Urine Specific Howard 1.025 (1.003-1.035) Urine Protein Negativemg/dL (NEG,TRACE) Urine Glucose (UA) 100mg/dL (NEGATIVE) Urine Ketones Negativemg/dL (NEGATIVE) Urine Occult Blood Negative (NEGATIVE) Urine Nitrite Negative (NEGATIVE) Urine Bilirubin Negative (NEGATIVE) Urine Urobilinogen Normalmg/dL (NORMAL) Urine Leukocyte Esterase Negative (NEGATIVE) Urine RBC 0-2/hpf (0-2) Urine WBC 0-5/hpf (0-5) Urine Epithelial Cells Moderate/hpf (NONE-MOD) Urine Crystals None seen (NONE SEEN) Urine Bacteria Moderate/hpf (NONE-FEW) Urine Hyaline Casts Rare/lpf (NONE) Urine Granular Casts None seen (NONE SEEN) Urine Waxy Casts None seen (NONE SEEN) Urine Red Blood Cell Casts None seen (NONE SEEN) Urine White Blood Cell Casts None seen (NONE SEEN) Urine Mucus Present (None Seen) Urine Trichomonas None seen (NONE SEEN) Urine Yeast None (NONE SEEN) Urinalysis Comment None Urine Culture Reflexed Indicated Triglycerides Level 123mg/dL (0-149) Cholesterol Level 195mg/dL (100-199) LDL Cholesterol, Calculated 109.400mg/dL (0-99) VLDL Cholesterol 24.600mg/dL HDL Cholesterol 61mg/dL (>39) Cholesterol/HDL Ratio 3.20 (0.0-4.4) Test 01/27/17 07:38 01/28/17 09:30 Troponin T 0.010ug/L (0.0-0.011) White Blood Count 5.6th/mm3 (3.8-10.1) Red Blood Count 4.02mil/mm3 (3.90-5.20) Hemoglobin 11.8g/dL (12.0-15.6) Hematocrit 37.0% (35.0-46.0) Mean Corpuscular Volume 92.0fL (81-100) Mean Corpuscular Hemoglobin 29.4pg (27.0-35.0) Mean Corpuscular Hemoglobin Concent 31.9% (32.0-37.0) Red Cell Distribution Width 16.1% (12.3-15.4) Platelet Count 140bil/L (150-400) Neutrophils (%) (Auto) 62.2% (40-74) Lymphocytes (%) (Auto) 11.6% (14-46) Monocytes (%) (Auto) 21.0% (4-12) Eosinophils (%) (Auto) 3.9% (0-5) Basophils (%) (Auto) 0.4% (0-3) Sodium Level 141mEq/L (134-144) Potassium Level 3.1mEq/L (3.5-5.2) Chloride Level 100mEq/L (97-108) Carbon Dioxide Level 29mmol/L (18-29) Blood Urea Nitrogen 11mg/dL (8-27) Creatinine 0.90mg/dL (0.57-1.00) Estimat Glomerular Filtration Rate 88mL/min (>59) Glucose Level 129mg/dL (60-99) Calcium Level 8.1mg/dL (8.5-10.1) Discharge Medications Discharge Medications Aspirin (Aspirin) 81 Mg Tablet 81 MG PO DAILY (Reported) Chlorhexidine Gluconate (Chlorhexidine Gluconate) 473 Ml Mouthwash 473 ML MM BID (Reported) Ciprofloxacin (Cipro) 500 Mg Tablet 500 MG PO BID Prescribed by: LALO QUIÑONES DO Clopidogrel (Clopidogrel) 75 Mg Tablet 75 MG PO DAILY Prescribed by: LALO QUIÑONES DO Dexamethasone (Dexamethasone) 4 Mg Tablet 40 MG PO WEEKLY (Reported) Hydrochlorothiazide (Hydrochlorothiazide) 25 Mg Tablet 25 MG PO DAILY (Reported ) Lenalidomide (Revlimid) 25 Mg Capsule 25 MG PO daily [id number] (Reported) Metoprolol Tartrate (Metoprolol Tartrate) 50 Mg Tablet 50 MG PO DAILY (Reported ) Nifedipine ER (Nifedipine ER) 60 Mg Tab.er.24 60 MG PO DAILY (Reported) Oxycodone ER (Oxycontin) 40 Mg Tab.er.12h 40 MG PO BID (Reported) Ranitidine (Zantac OTC) 75 Mg Tablet 75 MG PO prn (Reported) Venlafaxine ER (Venlafaxine ER) 75 Mg Tab.er.24 150 MG PO DAILY (Reported) As needed Ibuprofen (Ibuprofen) 400 Mg Tablet 400 MG PO QID PRN PRN For Pain (Reported) Zolpidem (Zolpidem) 5 Mg Tablet 5 MG PO HS PRN PRN For Insomnia (Reported) oxyCODONE-Acetaminophen 10-325 mg (oxyCODONE-Acetaminophen 10-325 mg) 1 Each Tablet 1 TABLET PO Q6H PRN PRN For Pain (Reported) Additional med instructions You received 2 days of antibiotics for your urinary tract infection. I am sending you home with an oral antibiotics that you can take tomorrow to finish the 3-day treatment. I gave you 14 pills of Plavix which should be enough to get you to see your primary care physician. If you are going to run out, then call your primary care physician to fill the prescription for you. Otherwise, continue on all your home medications. Followup Plan Discharge Diet: Heart Healthy Discharge Activity: Other (as tolerated) Patient Instructions Follow up with your primary care provider within [address] Flores has access to all the hospital records. I will put in my note that you need a repeat MRI per the MRI report, in 2-3 months. Be sure to ask your doctor. Follow-up Provider: JEROMY FLORES DO Follow-up with PCP in: 1 week Attending Statement The patient was seen and examined together with Dr. Quiñones on 01/28/17 and I agree with the history, exam and plan as outlined in the note above. copies to: JEROMY FLORES Janice M DO Jan 28, 2017 18:43 Annette Prado DO Jan 29, 2017 15:17
== END 2017-01-28 15:01 | disposition home or self-care (01) | DRG 65 ==
LOC: SED 10:24 → OBSVTOIN 13:48 → MPC 13:48
PROVIDERS: ADMIT Family Medicine; ATTEND Family Medicine
DX: I63.9 Cerebral infarction, unspecified (principal); C90.00 Multiple myeloma not having achieved remission; N39.0 Urinary tract infection, site not specified; Z79.82 Long term (current) use of aspirin; Z87.891 Personal history of nicotine dependence; R47.81 Slurred speech; I10 Essential (primary) hypertension; I25.10 Atherosclerotic heart disease of native coronary artery without angina pectoris; F32.9 Major depressive disorder, single episode, unspecified; G89.4 Chronic pain syndrome; K21.9 Gastro-esophageal reflux disease without esophagitis; Z66 Do not resuscitate; B95.2 Enterococcus as the cause of diseases classified elsewhere

== ENCOUNTER 2017-02-24 13:56 | Emergency (ER) | payer MEDICARE ==
[~2017-02-24] VITALS: Ht 154.9 cm; Wt 63.6 kg
[~2017-02-24 13:56] MED LIST changes: +CHLO473M13 MM; -CHOL10008 PO; +CIPR-231 PO; +CLOP75TA28 PO; -CYCL10TA9 PO; -LORA0.5T PO; -MV-M1TAB38 PO
[2017-02-24 14:05] VITALS: BP 135/70; PULSE 68; RESP 15; O2SAT 98
--- NOTE | 2017-02-24 14:25 | ED.REPORT ---
HPI-Neurologic Deficit Date of Service Feb 24, 2017 ED Provider: Juan Ng DO Pt is a 71 y.o. female who presents to the ED accompanies by family who presents to the ED with worsened slurred speech and word finding onset today.Pt reports a TIA 4 weeks ago with left-sided deficits including vision changes, weakness, and slurred speech. Family reports that they called the pt's cellphone this morning and she was slow to answer. When they finally got a hold of her they noted that her speech was slowed, more slurred, and she was having more difficulty with word finding. When they went to see her they noticed that she appeared weaker and was not as "steady" when using her walker. They report that pt had a ground level fall 5 days ago. Pt told daughter that she thought she had a UTI 2 days ago due to dysuria and increased urgency and frequency. Pt denies fever, nausea, vomiting, and abdominal pain. Nursing Notes Stated Complaint: POSS STROKE Chief Complaint: Neuro Symptoms/ Deficits Nursing Notes Reviewed: Yes Allergies: Coded Allergies: allopurinol (Verified Allergy, Unknown, 02/24/17) Sulfa (Sulfonamide Antibiotics) (Verified Adverse Reaction, Intermediate, Nausea, 02/24/17) Scheduled Aspirin (Aspirin) 81 Mg Tablet 81 MG PO DAILY Chlorhexidine Gluconate (Chlorhexidine Gluconate) 473 Ml Mouthwash 473 ML MM BID Ciprofloxacin (Cipro) 500 Mg Tablet 500 MG PO BID Clopidogrel (Clopidogrel) 75 Mg Tablet 75 MG PO DAILY Dexamethasone (Dexamethasone) 4 Mg Tablet 40 MG PO WEEKLY Hydrochlorothiazide (Hydrochlorothiazide) 25 Mg Tablet 25 MG PO DAILY Lenalidomide (Revlimid) 25 Mg Capsule 25 MG PO daily [id number] Metoprolol Tartrate (Metoprolol Tartrate) 50 Mg Tablet 50 MG PO DAILY Nifedipine ER (Nifedipine ER) 60 Mg Tab.er.24 60 MG PO DAILY Oxycodone ER (Oxycontin) 40 Mg Tab.er.12h 40 MG PO BID Ranitidine (Zantac OTC) 75 Mg Tablet 75 MG PO prn Venlafaxine ER (Venlafaxine ER) 75 Mg Tab.er.24 150 MG PO DAILY Scheduled PRN Ibuprofen (Ibuprofen) 400 Mg Tablet 400 MG PO QID PRN PRN For Pain Zolpidem (Zolpidem) 5 Mg Tablet 5 MG PO HS PRN PRN For Insomnia oxyCODONE-Acetaminophen 10-325 mg (oxyCODONE-Acetaminophen 10-325 mg) 1 Each Tablet 1 TABLET PO Q6H PRN PRN For Pain General Time Seen by Provider: 14:25 Chief Complaint Slurred speech Hx Obtained From: Patient, Daughter Arrived By: Walk-in Sudden in Onset?: No Severity: Current: No pain currently Past Medical History Past Medical History Notes: given a prescription from Dr. Simpson last week, pharmacy will not fill without authorization from Dr. 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 Has been having prescriptions filled locally since 10/2015 Alcohol Use: Denies alcohol use Ambulatory Status Wheelchair Review of Systems Difficulty word finding Constitutional: Denies: Fever GI: Denies: Abdominal pain, Nausea, Vomiting Neurologic: Reports: Problem walking, Slurred speech, Weakness Complete sys rev & neg: except as marked. Male: Reports Dysuria, Reports Urinary frequency, Reports Urinary urgency Physical Exam Initial Vital Signs Vital Signs (First) Date Time Temp Pulse Resp B/P Pulse Ox O2 Delivery O2 Flow Rate FiO2 02/24/17 14:05 36.1 68 15 135/70 98 Room Air Initial VS: Reviewed Abdomen / GI: No distention Extremities: Vascular intact, Neuro intact Skin: Warm, Dry, No cyanosis Psychiatric: Mood/affect normal, Behavior normal, Normal thought content General/Constitutional: Awake, Alert, No acute distress, Well appearing, Well developed, Well hydrated, Well nourished, Not toxic appearing Head / Eyes: Atraumatic, Normocephalic Respiratory / Chest: Atraumatic, Breath sounds NL, No respiratory distress Cardiovascular: Heart rate NL, Regular rhythm, Peripheral circulation NL Neurologic: Oriented X3 Interpretation & Diagnostics X-Ray Chest Interpretation Chest Xray Interpretation: IMPRESSION: No acute process. Dictated by: Mulugeta Velasquez M.D. on 02/24/2017 at 15:09 Approved by: Mulugeta Velasquez M.D. on 02/24/2017 at 15:09 CT Head Interpretation IMPRESSION: 1. No acute process. 2. No change in bilateral cerebellar infarcts. Dictated by: Mulugeta Velasquez M.D. on 02/24/2017 at 14:59 Approved by: Mulugeta Velasquez M.D. on 02/24/2017 at 15:00 Re-Eval/Medical Decision Med Decision/Clinical Course Recurrence of prior stroke symptoms, along with a recent fall, we will work the patient up for causes of infection as this may be attributed to her symptoms as well as repeat head CT. Care transferred to Dr. Bowser Source of Hx: Old records Counseled Regarding: Diagnosis, Need for follow-up, When/why to return to ED Discharge & Departure Shift Change Sign-Out Patient Care Transferred: Yes (Dr. Bowser) Discussed Complaint(s): Yes Laboratory Evaluation: Done, results pending Imaging Studies: Imaging discussed Impression: Primary Impression: Weakness Referrals: JEROMY FLORES DO (PCP) Care Transferred to: Dr. Bowser Care Transferred at: 15:00 Scribe Attestation Portions of this note were transcribed by Jordana Baez. I, Dr. Ng personally performed the history, physical exam and medical decision-making; I reviewed and confirmed the accuracy of the information in the transcribed note. Signed by: David Elam, 02/24/17 and 1520. copies to: JEROMY FLORES Timothy S DO Feb 24, 2017 14:25 JORDANA BAEZ Feb 24, 2017 14:37
[2017-02-24] MEDS ORDERED: 0.9% Sodium Chloride 1,000 ML IV ONE (14:37)
[2017-02-24 14:51] VITALS: BP 129/68; PULSE 68; RESP 14; O2SAT 98
--- NOTE | 2017-02-24 15:01 | DRSVH ---
PROCEDURE: CT BRAIN WITHOUT CONTRAST ([id number]) INDICATIONS: left sided weakness, recent stroke TECHNIQUE: Noncontrast 4.5 mm thick angled axial sections acquired from the foramen magnum to the vertex, with c oronal reformats. COMPARISON: [facility], MR, MR BRAIN W CON, 01/27/2017, 9:47. FINDINGS: Image quality: Excellent. CSF spaces: Basal cisterns are patent. No extra-axial fluid collections. The ventricles are symmet brijesh in size and shape. Brain: No intracranial bleeds or masses. No change in chronic left greater than right bilateral cere bellar infarcts. There is cerebral volume loss for age, with resultant ventricular and sulcal promine nce. There are periventricular and deep white matter chronic small vessel ischemic changes. There i s intracranial internal carotid artery atherosclerosis. Skull and face: Calvarium and visualized facial bones appear intact, without suspicious lesions. Sinuses: Visualized sinuses and mastoids are clear. IMPRESSION: 1. No acute process. 2. No change in bilateral cerebellar infarcts. Dictated by: Mulugeta Velasquez M.D. on 02/24/2017 at 14:59 Approved by: Mulugeta Velasquez M.D. on 02/24/2017 at 15:00
--- NOTE | 2017-02-24 15:11 | DRSVH ---
PROCEDURE: X-RAY CHEST ONE VIEW, PORTABLE ([id number]) INDICATIONS: recent stroke weakness TECHNIQUE: One view of the chest was acquired. COMPARISON: [facility], CT, CT CHEST WO CON, 06/18/2016, 13:42. [facility], CR, CHEST 1VW (PORTABLE), 11/29/2007, 6:32. [facility], CT, CHEST W/O CONTRAST, 11/28/20 07, 20:40. FINDINGS: Surgical changes and devices: None. Lungs and pleura: No pleural effusions or pneumothorax. Lungs are clear. Mediastinum: Mediastinal contours appear normal. Heart size is normal. Bones and chest wall: No suspicious bony lesions. Overlying soft tissues appear unremarkable. IMPRESSION: No acute process. Dictated by: Mulugeta Velasquez M.D. on 02/24/2017 at 15:09 Approved by: Mulugeta Velasquez M.D. on 02/24/2017 at 15:09
[2017-02-24 15:36] LABS: MONOCYTES % (AUTO) 21.6 % (4-12); Mean Corpuscular Hemoglobin 28.7 pg (27.0-35.0); Mean Corpuscular Volume 88.5 fL (81-100); NEUTROPHILS % (AUTO) 56.1 % (40-74); Platelet Count 181 bil/L (150-400)
[2017-02-24 15:55] LABS: INR 0.95 ratio
[2017-02-24 16:00] LABS: TROPONIN T < 0.010 ug/L (0.0-0.011)
--- NOTE | 2017-02-24 16:16 | NUR ---
Evaluation completed. Please go to "Notes" then click on "Assessments and Notes" (bottom left corner of screen). Then select appropriate discipline tab on top of screen.
[2017-02-24 16:41] LABS: APPEARANCE,URINE HAZY (CLEAR,HAZY); COLOR,URINE YELLOW (YELLOW); OCCULT BLOOD,URINE SMALL (NEGATIVE); PH,URINE 5.5 (5.0-8.0); UROBILINOGEN,URINE NORMAL (NORMAL)
[2017-02-24] MEDS ORDERED: cefTRIAXone Inj 2,000 MG in Dextrose 5% Minibag Plus 50 ML IV ONE (16:55)
[2017-02-24] MEDS ORDERED: CEPH500T PO (17:14)
[2017-02-24 17:25] VITALS: BP 114/51; PULSE 76; RESP 17; O2SAT 95
== END 2017-02-24 18:06 | disposition home or self-care (01) ==
LOC: SED 13:56
DX: N39.0 Urinary tract infection, site not specified (principal); R53.1 Weakness; W18.39XA Other fall on same level, initial encounter; Y92.9 Unspecified place or not applicable; Y93.89 Activity, other specified; Y99.8 Other external cause status; I10 Essential (primary) hypertension; Z79.82 Long term (current) use of aspirin; Z87.891 Personal history of nicotine dependence; Z88.2 Allergy status to sulfonamides; Z88.8 Allergy status to other drugs, medicaments and biological substances
CPT/HCPCS: 36415; 70450; 71010; 80053; 81000; 84484; 85025; 85610; 85730; 87086; 87088; 92610; 93005; 96361; 96365; 99285; G8996; G8997; J0696; J7030

== ENCOUNTER 2017-03-09 17:04 | Emergency (ER) | payer MEDICARE ==
[~2017-03-09] VITALS: Ht 157.5 cm; Wt 63.6 kg
[~2017-03-09 17:04] MED LIST changes: +CEPH500T PO
[2017-03-09 17:12] VITALS: BP 116/80; PULSE 79; RESP 10; O2SAT 98
--- NOTE | 2017-03-09 19:47 | ED.REPORT ---
HPI-Extremity Problem Lower Date of Service Mar 09, 2017 ED Provider: Jonelle Trejo MD Pt is a 71 y.o. female with a hx of Multiple myeloma, TIA, and HTN who presents to the ED accompanied by her daughter c/o worsening right lower extremity pain and swelling. Pt was dx with cellulitis at 3 days ago and prescribed Cephalexin. She reports that the area has been worsening since starting the abx. Associated redness and chills. Pt denies fever. Nursing Notes Stated Complaint: RASH Chief Complaint: Extremity Trauma Nursing Notes Reviewed: Yes Allergies: Coded Allergies: allopurinol (Verified Allergy, Unknown, 02/24/17) Sulfa (Sulfonamide Antibiotics) (Verified Adverse Reaction, Intermediate, Nausea, 02/24/17) Scheduled Aspirin (Aspirin) 81 Mg Tablet 81 MG PO DAILY Cephalexin (Cephalexin) 500 Mg Tablet 500 MG PO QID Chlorhexidine Gluconate (Chlorhexidine Gluconate) 473 Ml Mouthwash 473 ML MM BID Ciprofloxacin (Cipro) 500 Mg Tablet 500 MG PO BID Clindamycin (Clindamycin) 300 Mg Capsule 300 MG PO QID Clopidogrel (Clopidogrel) 75 Mg Tablet 75 MG PO DAILY Dexamethasone (Dexamethasone) 4 Mg Tablet 40 MG PO WEEKLY Hydrochlorothiazide (Hydrochlorothiazide) 25 Mg Tablet 25 MG PO DAILY Lenalidomide (Revlimid) 25 Mg Capsule 25 MG PO daily [id number] Metoprolol Tartrate (Metoprolol Tartrate) 50 Mg Tablet 50 MG PO DAILY Nifedipine ER (Nifedipine ER) 60 Mg Tab.er.24 60 MG PO DAILY Oxycodone ER (Oxycontin) 40 Mg Tab.er.12h 40 MG PO BID Ranitidine (Zantac OTC) 75 Mg Tablet 75 MG PO prn Venlafaxine ER (Venlafaxine ER) 75 Mg Tab.er.24 150 MG PO DAILY Scheduled PRN Ibuprofen (Ibuprofen) 400 Mg Tablet 400 MG PO QID PRN PRN For Pain Zolpidem (Zolpidem) 5 Mg Tablet 5 MG PO HS PRN PRN For Insomnia oxyCODONE-Acetaminophen 10-325 mg (oxyCODONE-Acetaminophen 10-325 mg) 1 Each Tablet 1 TABLET PO Q6H PRN PRN For Pain General Time Seen by MD: 19:42 Chief Complaint Leg injury right Hx Obtained From: Patient Arrived By: Wheelchair Onset Occurred: 3 days ago Symptom Duration: Since onset Location: : Leg right Quality: Painful Severity: Current: Moderate Recent Healthcare: Recent doctor visit Past Medical History Past Medical History Notes: given a prescription from Dr. Simpson last week, pharmacy will not fill without authorization from Dr. cortez Past Medical History Compression fractures in spine Multiple myeloma Reports: Cancer, Hypertension, Transient ischemic attack Smoking History Former Smoker Social History lives with daughter and son in law. Has been having prescriptions filled locally since 10/2015 Alcohol Use: Denies alcohol use Ambulatory Status Wheelchair Review of Systems Constitutional: Reports: Chills, Denies: Fever Musculoskeletal: Reports: Extremity pain (RLE), Extremity swelling (RLE) Skin: Reports Rash (Redness to RLE) Complete sys rev & neg: except as marked. Physical Exam Initial Vital Signs Vital Signs (First) Date Time Temp Pulse Resp B/P Pulse Ox O2 Delivery O2 Flow Rate FiO2 03/09/17 17:12 37.0 79 10 116/80 98 Initial VS: Reviewed Head / Eyes: Atraumatic, Normocephalic, PERRL Abdomen / GI: No distention Upper Extremities: Vascular intact, Neuro intact Neurologic: Alert, Oriented, Nonfocal Psychiatric: Mood/affect normal, Behavior normal, Normal thought content Right Leg / Calf: Positive: Erythema present, Tenderness present... Ankle / Foot: Atraumatic, Inspection NL General/Constitutional: Awake, Alert, No acute distress, Not toxic appearing Respiratory / Chest: Atraumatic, Breath sounds NL, Breath sounds = bilat, No respiratory distress Cardiovascular: Heart rate NL, Regular rhythm, Heart sounds NL Color / Condition: Positive: Erythema localized Erythema and edema with slight fluctuance (extending beyond borders previously drawn) to anterior third of distal santiago. Interpretation & Diagnostics Lab Results Interpretation Result Diagram: 03/09/17203403/09/172034 Test 03/09/17 20:35 White Blood Count 4.9th/mm3 (3.8-10.1) Red Blood Count 3.85mil/mm3 (3.90-5.20) Hemoglobin 11.1g/dL (12.0-15.6) Hematocrit 33.7% (35.0-46.0) Mean Corpuscular Volume 87.5fL (81-100) Mean Corpuscular Hemoglobin 28.8pg (27.0-35.0) Mean Corpuscular Hemoglobin Concent 32.9% (32.0-37.0) Red Cell Distribution Width 14.9% (12.3-15.4) Platelet Count 268bil/L (150-400) Neutrophils (%) (Auto) 57.8% (40-74) Lymphocytes (%) (Auto) 15.4% (14-46) Monocytes (%) (Auto) 18.9% (4-12) Eosinophils (%) (Auto) 6.7% (0-5) Basophils (%) (Auto) 0.8% (0-3) Sodium Level 135mEq/L (134-144) Potassium Level 3.7mEq/L (3.5-5.2) Chloride Level 90mEq/L (97-108) Carbon Dioxide Level 28mmol/L (18-29) Blood Urea Nitrogen 12mg/dL (8-27) Creatinine 1.01mg/dL (0.57-1.00) Estimat Glomerular Filtration Rate 77mL/min (>59) Glucose Level 142mg/dL (60-99) Calcium Level 10.0mg/dL (8.5-10.1) Total Bilirubin 0.6mg/dL (0.0-1.2) Aspartate Amino Transf (AST/SGOT) 15U/L (0-50) Alanine Aminotransferase (ALT/SGPT) 12U/L (0-32) Alkaline Phosphatase 70U/L (25-165) Total Protein 6.7g/dL (6.4-8.4) Albumin 3.7g/dL (3.4-5.0) Hold Victor Top Tube Received (Received) US Soft Tissue/Musculoskeletal Bedside US: Right lower Extremity US shows cobblestoning and fluid pocket consistant with abscess. Exam Performed by: ED physician Procedures Incision & Drainage Abscess Time: 20:40 Procedure Performed by: ED physician Consent / Setup / Site Prep: Informed consent provided, Consent from patient , Time-out performed, Hand hygiene observed, Stand sterile technique Location of Abscess: Right anterior third of distal santiago. Skin Preparation Agent: Other (Alcohol) Local Anesthesia: Lidocaine w epi 2% Incised Abscess with Scalpel: #15 Pus Drained: Medium, Purulent discharge Irrigation: No Post-Procedure / Complications: Drain placed, Dressing applied, No complications, Condition improved, Tolerated procedure well, Patient stable Re-Eval/Medical Decision Med Decision/Clinical Course 71-year-old female with past medical history of dehydration and recent diagnosis of cellulitis who was given Keflex without improvement of symptoms of her cellulitis here with worsening redness and swelling on her leg. Differential diagnosis includes but is not limited to abscess versus cellulitis versus DVT versus contusion. At this time, patient's erythema and edema are very localized, she has no actual calf swelling, and I do not feel she has a DVT. On bedside ultrasound, there was a fluid collection around her cellulitis. I performed an incision and drainage which she tolerated well. She was given her first dose of clindamycin in the emergency department, advised to stop taking Keflex, and will follow-up this week with her primary care physician. She was given very strict return precautions and is amenable to discharge. CBC and CMP were at patient's baseline. Source of Hx: Old records Re-Evaluation/Progress #1: Time of Eval: 20:01 Re-Evaluation/Progress Note: Pt rechecked. Discussed plan for I&D, pt understands and agrees with plan. Re-Evaluation/Progress #2: Time of Eval: 21:29 Re-Evaluation/Progress Note: Pt rechecked. Discussed plan for discharge, pt understands and agrees with plan. Counseled Regarding: Diagnosis, Lab results, Need for admission Discharge & Departure Impression: Primary Impression: Cellulitis and abscess of lower extremity Disposition: Home Discharge Condition All VS Reviewed: Yes Condition: Improved Patient Instructions: Abscess Incision and Drainage (ED), Cellulitis (ED) Additional Instructions: Thank you for entrusting us with your care today. Your lab results were reassuring and you do not show evidence of dehydration. You abscess was incised and drained. Keep the area clean and dry. I will prescribe you a 10 day course of Clindamycin. Please return if you develop increased redness, swelling, pain, fever, or any new or worsening symptoms. Referrals: JEROMY FLORES DO (PCP) David Attestation Portions of this note were transcribed by Jordnaa Baez. I, Dr. Trejo personally performed the history, physical exam and medical decision-making; I reviewed and confirmed the accuracy of the information in the transcribed note. Signed by : David Elam, 03/09/17 and 2129. copies to: JEROMY FLORES Rebecca A MD Mar 09, 2017 19:47 JORDANA BAEZ Mar 09, 2017 19:53
[2017-03-09] MEDS ORDERED: Lidocaine 1%-Epi 1:100,000 50 mL Inj SUBQ ONE (20:05)
[2017-03-09] MEDS ORDERED: Lidocaine 2%-Epi 1:100,000 20 mL Inj SUBQ ONE (20:40)
[2017-03-09 20:54] LABS: BASOPHILS % (AUTO) 0.8 % (0-3); EOSINOPHILS % (AUTO) 6.7 % (0-5); MONOCYTES % (AUTO) 18.9 % (4-12); Mean Corpuscular Hemoglobin 28.8 pg (27.0-35.0); Mean Corpuscular Volume 87.5 fL (81-100); NEUTROPHILS % (AUTO) 57.8 % (40-74); Platelet Count 268 bil/L (150-400)
[2017-03-09] MEDS ORDERED: CLIN-78 PO (21:32)
[2017-03-09 21:44] VITALS: BP 135/84; PULSE 83; RESP 24; O2SAT 98
== END 2017-03-09 21:47 | disposition home or self-care (01) ==
LOC: SED 17:04
DX: L03.115 Cellulitis of right lower limb (principal); L02.415 Cutaneous abscess of right lower limb; I10 Essential (primary) hypertension; Z79.82 Long term (current) use of aspirin; Z87.891 Personal history of nicotine dependence; Z88.2 Allergy status to sulfonamides; Z88.8 Allergy status to other drugs, medicaments and biological substances